=== PATIENT | female | born 1975 | race Caucasian/White ===

== ENCOUNTER 2024-04-20 11:05 | Emergency (ER) | payer MEDICAID ==
[~2024-04-20] VITALS: Ht 154.9 cm; Wt 75.0 kg
[2024-04-20 11:20] VITALS: O2SAT 98
[2024-04-20 15:40] LABS: CLARITY URINE CLEAR (CLEAR); COLOR URINE YELLOW (YELLOW); GLUCOSE URINE NEGATIVE (NEGATIVE); KETONES URINE TRACE (NEGATIVE); LEUKOCYTE ESTERASE URINE NEGATIVE (NEGATIVE); NITRITE URINE NEGATIVE (NEGATIVE); OCCULT BLOOD URINE TRACE (NEGATIVE); PROTEIN URINE NEGATIVE (NEGATIVE); SPECIFIC GRAVITY URINE 1.024 (1.005-1.030); UROBILINOGEN URINE 0.2 E.U./dL (0.2-1.0)
[2024-04-20 16:03] LABS: BACTERIA URINE 1+; SQUAMOUS EPITHELIAL CELL URINE FEW /lpf (RARE/1+); WBC URINE 0-2 /hpf (0-2)
[2024-04-20] MEDS ORDERED: HYDR-4233 TP (16:20)
[2024-04-20] MEDS ORDERED: LORA10CA MT (16:20)
[2024-04-20 16:46] VITALS: BP 147/81; PULSE 70; RESP 16; TEMP 36.89184; O2SAT 98
== END 2024-04-20 17:00 | disposition home or self-care (01) ==
LOC: ER 11:33
DX: L50.9 Urticaria, unspecified (principal); R07.89 Other chest pain; Z98.890 Other specified postprocedural states
CPT/HCPCS: 81003; 99283